=== PATIENT | female | born 1935 | race Two or more races ===

== ENCOUNTER 2016-07-14 15:22 | Inpatient (IN) | payer MEDICARE ==
[2016-07-14] VITALS (7 sets, daily range): BP systolic 76–133; BP diastolic 38–81
[~2016-07-14] VITALS: Ht 160 cm; Wt 81.6 kg
[2016-07-14] MEDS ORDERED: Glucagon 1mg Inj IV ONE (15:45)
[2016-07-14] MEDS ORDERED: Glucagon 1mg Inj ONE (15:45)
[2016-07-14 16:11] LABS: BASOPHILS % (AUTO) 0.9 % (0.0-2.0); EOSINOPHILS % (AUTO) 0.8 % (0.0-3.0); LYMPHOCYTES % (AUTO) 22.7 % (20.0-45.0); MEAN CORPUSCULAR HEMOGLOBIN 26.6 PG (27.0-31.0); MEAN CORPUSCULAR HGB CONC 30.3 G/DL (32.0-36.0); MEAN CORPUSCULAR VOLUME 88 FL (80-99); MEAN PLATELET VOLUME 6.5 FL (6.5-10.1); MONOCYTES % (AUTO) 5.1 % (1.0-10.0); NEUTROPHILS % (AUTO) 70.5 % (45.0-75.0); PLATELET COUNT 315 K/UL (150-450); RED BLOOD COUNT 3.07 M/UL (4.20-5.40); RED CELL DISTRIBUTION WIDTH 15.8 % (11.6-14.8); WHITE BLOOD COUNT 11.3 K/UL (4.8-10.8)
[2016-07-14 16:36] LABS: TROPONIN I < 0.30 ng/mL (<=0.30)
[2016-07-14 17:22] LABS: CHLORIDE 92 mEQ/L (98-107); POTASSIUM 5.1 mEQ/L (3.4-4.9); SODIUM 132 mEQ/L (135-145)
[2016-07-14 17:23] LABS: ANION GAP 20 (5-15); ASPARTATE AMINO TRANSFERASE 23 U/L (5-40); CALCIUM 8.7 mg/dL (8.6-10.2); CARBON DIOXIDE 20 mEQ/L (20-30); CREATININE 1.7 mg/dL (0.5-0.9)
[2016-07-14 17:24] LABS: ALANINE AMINOTRANSFERASE < 5 U/L (3-33); CKMB 1.9 ng/mL (< 3.8); TOTAL PROTEIN 6.6 g/dL (6.6-8.7)
[2016-07-14 17:25] LABS: ALBUMIN/GLOBULIN RATIO 0.7 (1.0-2.7); HEMOLYSIS 46
[2016-07-14] MEDS ORDERED: Sodium Polystyrene Sulfonate 15gm Powder ORAL ONE (18:00)
[2016-07-14] MEDS ORDERED: ASPIR 8181 MG ORAL (18:02)
[2016-07-14] MEDS ORDERED: COREG6.25 MG ORAL (18:02)
[2016-07-14] MEDS ORDERED: CEFUROXIME250 MG PO (18:02)
[2016-07-14] MEDS ORDERED: AMARYL4 MG ORAL (18:02)
[2016-07-14] MEDS ORDERED: ALLOPURINOL100 M1 ORAL (18:02)
[2016-07-14] MEDS ORDERED: CRESTOR20 MG ORAL (18:02)
[2016-07-14] MEDS ORDERED: AZILECT1 MG PO (18:02)
[2016-07-14] MEDS ORDERED: IPRATROPIU0.2 MG/1 M HHN (18:05)
[2016-07-14] MEDS ORDERED: SINEMET 25-1001 EAC1 ORAL (18:05)
[2016-07-14] MEDS ORDERED: JANUVIA50 MG ORAL (18:05)
[2016-07-14] MEDS ORDERED: HYZAAR 100-251 EACH ORAL (18:05)
[2016-07-14] MEDS ORDERED: SYNTHROID112 MCG ORAL (18:05)
--- NOTE | 2016-07-14 18:29 | Emergency Room Report ---
History of Present Illness General Chief Complaint: Chest Pain Source: EMS Present Illness HPI 81-year-old female presents ED for evaluation of chest pain. Patient states she 's been having chest pain for last 2 days. On and off. Sharp. intermittent. 12/20. Nonradiating. No other aggravating or relieving factors. Patient was picked up from doctor's office because blood pressure was low at her heart rate was low. Daughter is at bedside and states that patient was recently discharged from [facility] for a "cough". Daughter believes that patient's blood pressure medication Coreg was increased. PMD is Dr Templeton, audio/video technician is Dr Saenz. Patient was given IV fluids by EMS and BP slowly improved. Patient denies any chest pain shortness of breath. Denies dizziness or weakness. No aggravating relieving factors. Denies any other associated Allergies: Coded Allergies: No Known Allergies (Unverified , 07/14/16) Patient History Past Medical History: DM, CHF Past Surgical History: none Pertinent Family History: none Social History: Denies: alcohol use, drug use, smoking Now: No Immunizations: UTD Reviewed Nursing Documentation: PMH: Agreed, PSxH: Agreed Nursing Documentation-PMH Past Medical History: No History, Except For Hx Cardiac Problems: Yes - CHF Hx Diabetes: Yes Review of Systems All Other Systems: negative except mentioned in HPI Physical Exam Vital Signs Date Time Temp Pulse Resp B/P Pulse Ox O2 Delivery O2 Flow Rate FiO2 07/14/16 15:20 67 14 89/48 96 Room Air 07/14/16 15:27 97.2 Sp02 EP Interpretation: reviewed, normal General Appearance: no apparent distress, alert, GCS 15, non-toxic Head: normocephalic, atraumatic Eyes: bilateral eye PERRL, bilateral eye normal inspection ENT: hearing grossly normal, normal pharynx, no angioedema, normal voice Neck: full range of motion, supple/symm/no masses Respiratory: chest non-tender, lungs clear, normal breath sounds, speaking full sentences Cardiovascular #1: no edema, bradycardia Cardiovascular #2: 2+ carotid (R), 2+ carotid (L), 2+ radial (R), 2+ radial (L) , 2+ dorsalis pedis (R), 2+ dorsalis pedis (L) Gastrointestinal: normal bowel sounds, non tender, soft, non-distended, no guarding, no rebound Rectal: deferred Genitourinary: normal inspection, no CVA tenderness Musculoskeletal: back normal, gait/station normal, normal range of motion, non- tender Neurologic: alert, oriented x3, responsive, motor strength/tone normal, sensory intact, speech normal Psychiatric: judgement/insight normal, memory normal, mood/affect normal, no suicidal/homicidal ideation Reflexes: 3+ bicep (R), 3+ bicep (L), 3+ tricep (R), 3+ tricep (L), 3+ knee (R) , 3+ knee (L) Skin: normal color, no rash, warm/dry, well hydrated Lymphatic: no adenopathy Procedures Critical Care Time Critical Care Time i. I feel this is a highly complex case requiring extensive working including EKG/Rhythm strip, Xray/CT/US, Blood/urine lab work, repeat exams while in ED, and administration of strong opiates/narcotics for pain control, admission to hospital or close patient follow up. Total time: 30 min bedside evaluation and treatment excludes procedures (EKG). Reason for critical care: Hypotensive, bradycardic Possible complications: hypotension, hypertension, KS, shock, arrhythmias, metabolic acidosis, end organ damage, respiratory failure. Interventions: IV fluids, glucagon. Antibiotics, Kayexalate Course: Patient brought in for bradycardia and hypotensive. Recently Corag dose was increased. Given IV fluids, placed in Trendelenburg position with BP slowly improving. Given glucagon. Patient mentating well. Labs show some leukocytosis, creatinine 1.7, potassium 5.1. EKG no ischemic changes. Given antibiotics and Kayexalate Consultations: nursing staff, EMS, family Performed by: Dr Murphy Tolerated well condition = serious j. because of unstable vital signs this patient had a condition that could potentially threaten life or limb. I feel this is a critical patient who required my full attention while patient was considered critical. Total Critical Care Time excluding procedures was greater than 35 minutes Medical Decision Making Diagnostic Impression: Primary Impression: Adverse effect of beta-sara Additional Impressions: Bradycardia Hypotension Qualified Codes: I95.2 - Hypotension due to drugs ARF (acute renal failure) Qualified Codes: N17.9 - Acute kidney failure, unspecified Hyperkalemia, diminished renal excretion ER Course Hospital Course 81-year-old female presents to ED complaining of chest pain, hypotensive and bradycardic Differential diagnoses include: KS/unstable angina, dehydration, beta sara overdose Clinical course Patient placed on stretcher. on registered nurse cardiac telemetry. After initial history and physical I ordered labs, EKG, chest x-ray, IVFs, IV glucagon labs reviewed- some leiocytosis, hb/hct stable, Cr 1.7, K 5.1, BNP > 2000, trop negative Chest x-ray- no acute process EKG - no ischemic process, bradycardic With IV fluids and glucagon, BP improved. Heart rate remains in the 40s however patient is mentating well with good blood pressure Case discussed with Dr. Saenz and she agreed to accept the patient to his service for further care and support I. I feel this is a highly complex case requiring extensive working including EKG/Rhythm strip, Xray/CT/US, Blood/urine lab work, repeat exams while in ED, and administration of strong opiates/narcotics for pain control, admission to hospital or close patient follow up. Diagnosis - adverse affect a beta sara, bradycardia, hypertension, ARF, hyperkalemia admitted to [facility] in serious condition Labs Test 07/14/16 15:30 07/14/16 16:50 White Blood Count 11.3 K/UL (4.8-10.8) Red Blood Count 3.07 M/UL (4.20-5.40) Hemoglobin 8.2 G/DL (12.0-16.0) Hematocrit 26.9 % (37.0-47.0) Mean Corpuscular Volume 88 FL (80-99) Mean Corpuscular Hemoglobin 26.6 PG (27.0-31.0) Mean Corpuscular Hemoglobin Concent 30.3 G/DL (32.0-36.0) Red Cell Distribution Width 15.8 % (11.6-14.8) Platelet Count 315 K/UL (150-450) Mean Platelet Volume 6.5 FL (6.5-10.1) Neutrophils (%) (Auto) 70.5 % (45.0-75.0) Lymphocytes (%) (Auto) 22.7 % (20.0-45.0) Monocytes (%) (Auto) 5.1 % (1.0-10.0) Eosinophils (%) (Auto) 0.8 % (0.0-3.0) Basophils (%) (Auto) 0.9 % (0.0-2.0) Sodium Level 132 mEQ/L (135-145) Potassium Level 5.1 mEQ/L (3.4-4.9) Chloride Level 92 mEQ/L (98-107) Carbon Dioxide Level 20 mEQ/L (20-30) Anion Gap 20 (5-15) Blood Urea Nitrogen 67 mg/dL (7-23) Creatinine 1.7 mg/dL (0.5-0.9) Estimat Glomerular Filtration Rate mL/min (>60) Glucose Level 102 mg/dL (74-106) Lactic Acid Level 0.90 mmol/L (0.66-2.22) Calcium Level 8.7 mg/dL (8.6-10.2) Total Bilirubin 0.2 mg/dL (0.0-1.2) Aspartate Amino Transf (AST/SGOT) 23 U/L (5-40) Alanine Aminotransferase (ALT/SGPT) < 5 U/L (3-33) Alkaline Phosphatase 61 U/L (35-104) Total Creatine Kinase 40 U/L (26-140) Creatine Kinase MB 1.9 ng/mL (< 3.8) Creatine Kinase MB Relative Index 4.7 Pro-B-Type Natriuretic Peptide 2665 pg/mL (0-450) Total Protein 6.6 g/dL (6.6-8.7) Albumin 2.8 g/dL (3.5-5.2) Globulin 3.8 g/dL Albumin/Globulin Ratio 0.7 (1.0-2.7) Troponin I < 0.30 ng/mL (<=0.30) EKG Diagnostic Results Rate: bradycardiac Rhythm: NSR ST Segments: no acute changes ASA given to the pt in ED: No Rhythm Strip Diag. Results EP Interpretation: yes Rhythm: NSR, no PVC's, no ectopy Chest X-Ray Diagnostic Results EP Interpretation: No Findings: no consolidation, no effusion, no pneumothorax, no acute cardiopulmonary disease Number of Views: 1 Last Vital Signs Date Time Temp Pulse Resp B/P Pulse Ox O2 Delivery O2 Flow Rate FiO2 07/14/16 17:39 97.2 57 18 115/81 100 Room Air Status: improved Disposition: ADMITTED INPATIENT Condition: Serious Referrals: NON PHYSICIAN (PCP) BETSY MURPHY M.D. Jul 14, 2016 18:29
--- NOTE | 2016-07-14 20:31 | Cardiology Progress Note ---
Subjective Subjective [id number] Objective Last 24 Hour Vital Signs Date Time Temp Pulse Resp B/P Pulse Ox O2 Delivery O2 Flow Rate FiO2 07/14/16 19:01 97.2 48 18 133/59 100 Room Air 07/14/16 17:39 97.2 57 18 115/81 100 Room Air 07/14/16 17:00 97.2 43 15 102/38 98 Room Air 07/14/16 16:10 97.2 46 17 92/42 98 Room Air 07/14/16 16:00 97.2 45 15 76/58 96 Room Air 07/14/16 15:27 97.2 46 14 89/48 96 Room Air 07/14/16 15:27 67 14 Room Air 07/14/16 15:20 67 14 89/48 96 Room Air Laboratory Tests Test 07/14/16 15:30 07/14/16 16:50 White Blood Count 11.3 K/UL (4.8-10.8) H Red Blood Count 3.07 M/UL (4.20-5.40) L Hemoglobin 8.2 G/DL (12.0-16.0) L Hematocrit 26.9 % (37.0-47.0) L Mean Corpuscular Volume 88 FL (80-99) Mean Corpuscular Hemoglobin 26.6 PG (27.0-31.0) L Mean Corpuscular Hemoglobin Concent 30.3 G/DL (32.0-36.0) L Red Cell Distribution Width 15.8 % (11.6-14.8) H Platelet Count 315 K/UL (150-450) Mean Platelet Volume 6.5 FL (6.5-10.1) Neutrophils (%) (Auto) 70.5 % (45.0-75.0) Lymphocytes (%) (Auto) 22.7 % (20.0-45.0) Monocytes (%) (Auto) 5.1 % (1.0-10.0) Eosinophils (%) (Auto) 0.8 % (0.0-3.0) Basophils (%) (Auto) 0.9 % (0.0-2.0) Sodium Level 132 mEQ/L (135-145) L Potassium Level 5.1 mEQ/L (3.4-4.9) H Chloride Level 92 mEQ/L (98-107) L Carbon Dioxide Level 20 mEQ/L (20-30) Anion Gap 20 (5-15) H Blood Urea Nitrogen 67 mg/dL (7-23) H Creatinine 1.7 mg/dL (0.5-0.9) H Estimat Glomerular Filtration Rate mL/min (>60) Glucose Level 102 mg/dL (74-106) Lactic Acid Level 0.90 mmol/L (0.66-2.22) Calcium Level 8.7 mg/dL (8.6-10.2) Total Bilirubin 0.2 mg/dL (0.0-1.2) Aspartate Amino Transf (AST/SGOT) 23 U/L (5-40) Alanine Aminotransferase (ALT/SGPT) < 5 U/L (3-33) Alkaline Phosphatase 61 U/L (35-104) Total Creatine Kinase 40 U/L (26-140) Creatine Kinase MB 1.9 ng/mL (< 3.8) Creatine Kinase MB Relative Index 4.7 Pro-B-Type Natriuretic Peptide 2665 pg/mL (0-450) H Total Protein 6.6 g/dL (6.6-8.7) Albumin 2.8 g/dL (3.5-5.2) L Globulin 3.8 g/dL Albumin/Globulin Ratio 0.7 (1.0-2.7) L Troponin I < 0.30 ng/mL (<=0.30) CHARLY BRUSH Jul 14, 2016 20:31
[2016-07-14] MEDS ORDERED: Bisacodyl EC 5mg tab ORAL PRN (20:45)
[2016-07-15] VITALS: BP 116/64
--- NOTE | 2016-07-15 03:17 | History and Physical Report ---
DATE OF ADMISSION: 07/14/2016 "NOTE: INCOMPLETE DICTATION" Grace Saenz M.D. DR: JALYN JOB#: [id number] CC:
--- NOTE | 2016-07-15 03:37 | History and Physical Report ---
DATE OF ADMISSION: 07/14/2016 DATE OF EVALUATION: 07/15/2016 IDENTIFICATION: This is an 81-year-old female. REASON FOR ADMISSION: Low blood pressure and heart rate. HISTORY OF PRESENT ILLNESS: The patient was seen by orthopedist today and they found that her blood pressure was 74/40, heart rate was 60, and oxygen saturation was 94%. Ambulance was called. They brought her to the emergency department. At [facility], they gave her some fluids. Blood pressure went up. The heart rate now is 60. She feels better. She had some left-sided chest pain when she was in the emergency department. The patient was just discharged from [facility] three days ago where she was admitted for congestive heart failure and she was diuresed and treated for possible respiratory infection. She was discharged home with better condition, but probably was slightly over diuresed. PAST MEDICAL HISTORY: Significant also for diabetes, chronic atrial fibrillation, Parkinson disease, gout, hypothyroidism, hyperlipidemia, and bedridden status due to weakness of the right leg. HOME MEDICATIONS: Include allopurinol, aspirin, Sinemet, carvedilol, cefuroxime, glimepiride, Hyzaar, albuterol, Atrovent, levothyroxine, Azilect, Crestor, and Januvia. ALLERGIES: There is no reported allergies. HABITS: No history of drinking, smoking, or drug abuse. REVIEW OF SYSTEMS: The patient denies shortness of breath. Right now, no chest pain. But she has some chest pain earlier in the office of her Orthopedic. She does not have diarrhea. She does not have palpitations or syncope. She has weakness of the right leg which is chronic. Some skin discoloration. Blood sugar suboptimally controlled. PHYSICAL EXAMINATION: GENERAL: This is an elderly female, pleasant appears to be chronically ill, not in acute distress. VITAL SIGNS: Blood pressure at present time 130/60, but upon admission was 89/48, heart rate 46, now it is about 60 she is in atrial fibrillation, she is afebrile, and saturating on room air 100%. HEENT: PERRLA. EOMI. There is some blurriness of the speech, which is chronic. NECK: Neck veins are not distended. LUNGS: She has some rhonchi and wheezing at the bases of both lungs. HEART: Regular with accented A2. BREAST: No significant masses. ABDOMEN: Soft and distended. Positive bowel sounds. EXTREMITIES: Lower extremity right leg is slightly more edematous than the left. There is brown discoloration on her skin and there is immobility of the right knee joint. She also has limitation of the left shoulder joint . NEUROLOGIC: Beside the weakness of the right leg, she also has some mild tremor. LABORATORY AND DIAGNOSTIC DATA: Her EKG shows atrial fibrillation with decreased voltage. Chest x-ray is pending. Her labs, white count 11.3, hemoglobin 8.2, and platelets 315,000. Potassium 5.1, BUN 67, and creatinine 1.7. Troponin is normal. Albumin 2.8. IMPRESSION AND RECOMMENDATION: Hypertension, bradycardia mostly iatrogenic, and also anemia. The patient is going to be monitored. We are going to be small amounts of fluids to avoid fluid overload. We are going to monitor her potassium level and heart rate level. Going to replace her usual medications. Monitor her blood sugar and that was discussed in detail with the family. Grace Saenz M.D. DR: Malu JOB#: [id number] CC:
[2016-07-15 04:00] VITALS: BP 134/69
[2016-07-15 05:51] LABS: BASOPHILS % (AUTO) 0.5 % (0.0-2.0); MEAN CORPUSCULAR HEMOGLOBIN 27.4 PG (27.0-31.0); MEAN CORPUSCULAR HGB CONC 31.7 G/DL (32.0-36.0); MEAN CORPUSCULAR VOLUME 86 FL (80-99); MONOCYTES % (AUTO) 6.8 % (1.0-10.0); NEUTROPHILS % (AUTO) 78.7 % (45.0-75.0); PLATELET COUNT 326 K/UL (150-450); RED CELL DISTRIBUTION WIDTH 15.8 % (11.6-14.8); WHITE BLOOD COUNT 10.9 K/UL (4.8-10.8)
[2016-07-15] MEDS: sitaGLIPtin 50mg tab ORAL SCH ×2 (06:24→06:30)
[2016-07-15] MEDS: Glimepiride 1mg tab ORAL SCH ×2 (06:24→06:30)
[2016-07-15 06:42] LABS: ANION GAP 20 (5-15); CALCIUM 8.3 mg/dL (8.6-10.2); CARBON DIOXIDE 18 mEQ/L (20-30); CHLORIDE 101 mEQ/L (98-107); CREATININE 1.2 mg/dL (0.5-0.9); HEMOLYSIS 95; POTASSIUM 4.8 mEQ/L (3.4-4.9); SODIUM 139 mEQ/L (135-145)
[2016-07-15 08:00] VITALS: BP 129/59
[2016-07-15] MEDS: Sinemet 25/100 tab ORAL SCH ×4 (08:18→22:27)
[2016-07-15] MEDS: Aspirin EC 81mg tab ORAL SCH (08:18)
[2016-07-15] MEDS: Allopurinol 100mg Tab ORAL SCH (08:19)
[2016-07-15] MEDS: Acetaminophen 500mg (ES) tab ORAL PRN (08:21)
[2016-07-15 12:00] VITALS: BP 130/62
--- NOTE | 2016-07-15 13:00 | Diagnostic Imaging Report ---
Indication: Chest pain Technique: One view of the chest Comparison: none Findings: Patient is rotated to the right. Lungs and pleural spaces are grossly clear. There are degenerative changes of the right shoulder. Impression: Limited exam due to patient rotation. No gross acute process
[2016-07-15 16:03] VITALS: BP 120/62
--- NOTE | 2016-07-15 18:12 | Cardiology Progress Note ---
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 hold diuretics b-blcokers and ARB Subjective Subjective feels better BP is more stable she is concerned about dose of Sinemet Objective Last 24 Hour Vital Signs Date Time Temp Pulse Resp B/P Pulse Ox O2 Delivery O2 Flow Rate FiO2 07/15/16 16:03 97.6 74 21 120/62 97 Nasal Cannula 2.0 07/15/16 16:00 58 07/15/16 12:00 97.7 77 20 130/62 99 Nasal Cannula 2.5 07/15/16 09:20 97.2 07/15/16 08:00 84 07/15/16 08:00 97.3 85 19 129/59 97 Nasal Cannula 2.0 07/15/16 04:20 65 07/15/16 04:00 97.2 82 20 134/69 99 Mechanical Ventilator 07/15/16 00:00 61 07/15/16 00:00 97.7 62 20 116/64 99 Nasal Cannula 2.0 07/14/16 21:46 97.2 80 18 124/81 100 Room Air 07/14/16 20:42 97.2 80 18 124/81 100 Room Air 07/14/16 19:01 97.2 48 18 133/59 100 Room Air General Appearance: alert EENT: PERRL/EOMI Neck: no JVD Cardiovascular: normal rate, arrhythmia Respiratory/Chest: crackles/rales - at bases Abdomen: distended Extremities: other - limited ROM of right leg Intake and Output 07/14/16 07/15/16 19:00 07:00 # Voids 1 4 Laboratory Tests Test 07/15/16 05:00 White Blood Count 10.9 K/UL (4.8-10.8) H Red Blood Count 3.10 M/UL (4.20-5.40) L Hemoglobin 8.5 G/DL (12.0-16.0) L Hematocrit 26.8 % (37.0-47.0) L Mean Corpuscular Volume 86 FL (80-99) Mean Corpuscular Hemoglobin 27.4 PG (27.0-31.0) Mean Corpuscular Hemoglobin Concent 31.7 G/DL (32.0-36.0) L Red Cell Distribution Width 15.8 % (11.6-14.8) H Platelet Count 326 K/UL (150-450) Mean Platelet Volume 7.0 FL (6.5-10.1) Neutrophils (%) (Auto) 78.7 % (45.0-75.0) H Lymphocytes (%) (Auto) 13.0 % (20.0-45.0) L Monocytes (%) (Auto) 6.8 % (1.0-10.0) Eosinophils (%) (Auto) 1.0 % (0.0-3.0) Basophils (%) (Auto) 0.5 % (0.0-2.0) Sodium Level 139 mEQ/L (135-145) Potassium Level 4.8 mEQ/L (3.4-4.9) Chloride Level 101 mEQ/L (98-107) Carbon Dioxide Level 18 mEQ/L (20-30) L Anion Gap 20 (5-15) H Blood Urea Nitrogen 56 mg/dL (7-23) H Creatinine 1.2 mg/dL (0.5-0.9) H Estimat Glomerular Filtration Rate mL/min (>60) Glucose Level 50 mg/dL (74-106) L Calcium Level 8.3 mg/dL (8.6-10.2) CHARLY VICENTE Jul 15, 2016 18:12
[2016-07-15 20:00] VITALS: BP 120/55
[2016-07-16 00:13] VITALS: BP 118/57
[2016-07-16 04:00] VITALS: BP 108/57
[2016-07-16] MEDS: Acetaminophen 500mg (ES) tab ORAL PRN (05:33)
[2016-07-16] MEDS: sitaGLIPtin 50mg tab ORAL SCH (06:42)
[2016-07-16] MEDS: Glimepiride 1mg tab ORAL SCH (06:42)
[2016-07-16 08:00] VITALS: BP 126/58
[2016-07-16] MEDS: Aspirin EC 81mg tab ORAL SCH (08:36)
[2016-07-16] MEDS: Sinemet 25/100 tab ORAL SCH ×2 (08:36→12:36)
[2016-07-16] MEDS: Allopurinol 100mg Tab ORAL SCH (08:36)
[2016-07-16 12:00] VITALS: BP 129/61
--- NOTE | 2016-07-17 16:12 | Cardiology Report ---
APPROVED REPORT EKG Measurement Heart [id number] P42 [id number] Atrial flutter Moderate voltage criteria for LVH, may be normal variant Abnormal ECG
--- NOTE | 2016-07-19 09:15 | Discharge Summary ---
Discharge Summary Hospital Course Date of Admission Jul 14, 2016 at 16:11 Date of Discharge Jul 16, 2016 at 15:46 Admitting Diagnosis ACS HPI Rowan Lee is a 81 year old female who was admitted on Jul 14, 2016 at 16:11 for Acute Coronary Syndrome Hospital Course dc summary dictated #[id number] Discharge Medications Continued Medications: Allopurinol* (Allopurinol*) 100 Mg Tablet 100 MG ORAL DAILY, TAB Aspirin* (Aspir 81*) 81 Mg Tablet.dr 81 MG ORAL DAILY, TAB Carbidopa/Levodopa 25-100 Mg* (Sinemet 25-100 Mg Tablet*) 1 Each Tablet 1 TAB ORAL THREE TIMES A DAY, TAB Glimepiride* (Amaryl*) 4 Mg Tablet 4 MG ORAL BEFORE BREAKFAST, TAB Levothyroxine Sodium* (Synthroid*) 112 Mcg Tablet 112 MCG ORAL DAILY, TAB Take in the morning on an empty stomach, at least 30 minutes before food. Rasagiline Mesylate (Azilect) 1 Mg Tablet 1 MG PO, TAB Rosuvastatin Calcium* (Crestor*) 20 Mg Tablet 20 MG ORAL DAILY, TAB Sitagliptin (Januvia) 50 Mg Tablet 50 MG ORAL DAILY, TAB Discharge Condition Upon Discharge: improving, stable Discharge Disposition Patient was discharged to Home () Discharge Diagnoses: Eusebio (Jacquelynnat)Tyra NP Jul 19, 2016 09:15
--- NOTE | 2016-07-19 22:19 | Discharge Summary 2 SIG ---
DATE OF ADMISSION: 07/14/2016 DATE OF DISCHARGE: 07/16/2016 REASON FOR ADMISSION: 81-year-old female was brought by ambulance from orthopedic office, where it was found that her blood pressure was 74/40 and heart rate was in 40s. Oxygen saturation on room air was stable at 94%. The patient was brought for evaluation. In the hospital, blood pressure 76/58 and heart rate was in 40s. Basic lab work revealed renal insufficiency with creatinine of 1.7, mild leukocytosis 11.3, potassium 5.1, and proBNP of more than 2000. Troponin was negative. Chest x-ray was negative for any acute cardiopulmonary disease. Lactate level was within normal limits. EKG revealed sinus bradycardia. No ectopy. No other ischemic changes. In the emergency department, the patient was given IV fluids. Blood pressure improved but heart rate remained in 40s. The patient was admitted for further management. The patient had recently increased dose of beta-sara. The patient was discharged from [facility] three days ago prior to admission to [facility] , where she was admitted for congestive heart failure. In [facility], she was diuresed and treated for possible respiratory infection. She discharged home in better condition, however, probably slightly over diuresed , in addition dose of beta-sara was recently increased as well. Patient admitted to monitored bed for further management. . ADMITTING DIAGNOSES: 1. Adverse effect of beta-sara. 2. Bradycardia. 3. Hypotension. 4. Mild hyperkalemia. 5. Anemia. HOSPITAL COURSE: The patient was admitted to [facility]. Gentle IV fluids were provided with care to avoid fluid overload. Cardiopulmonary status was closely monitored. Supplemental oxygen and pulmonary toilet were provided as needed. Blood pressure medications were on hold. Hyperkalemia was treated. Blood sugar was managed with sliding scale of insulin, stable. Hypotension improved. Bradycardia resolved. Per Cardiology, hold diuretic, beta-blockers and ARB upon discharge. The patient was noted to have anemia. She is on aspirin. Anemia workup as outpatient. The patient was stable for discharge. DISCHARGE DIAGNOSES: 1. Adverse effect of beta-sara. 2. Bradycardia, resolved. 3. Hypotension, resolved 4. Hyperkalemia, resolved. 5. Anemia. 6. Diabetes mellitus. 7. History of congestive heart failure. DISCHARGE MEDICATIONS: See medication reconciliation list. Hold diuretic, beat-sara and ARB. DISCHARGE INSTRUCTIONS: Follow up with the primary medical doctor and rn orthopaedic for further optimization of medication regimen. Grace Saenz M.D. I have been assigned to dictate discharge summary on this account and I was not involved in the patient's management. Tyra ChambersEastern Niagara Hospital, Newfane DivisionPedro Vitale DR: MONICA JOB#: [id number] CC: DELMY
--- NOTE | 2016-07-21 16:18 | Diagnostic Imaging Report ---
APPROVED REPORT CPT Code: 21769 Present Symptoms Comments: Pain BILATERAL: Imaging reveals a patent deep venous system bilaterally. There is no evidence of thrombus within the femoral, popliteal or tibial segments. The greater saphenous veins are also within normal limits. Doppler indicates normal spontaneous flow within these segments.
--- NOTE | 2016-07-21 16:57 | Cardiology Progress Note ---
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
--- NOTE | 2016-07-22 01:18 | Discharge Summary ---
DATE OF ADMISSION: 07/14/2016 DATE OF DISCHARGE: 07/16/2016 DIAGNOSES: 1. Hypotension, possibly iatrogenic. 2. Permanent atrial fibrillation. 3. Acute renal injury. 4. Anemia. 5. Diabetes mellitus. 6. Parkinson's disease. 7. Congestive heart failure, chronic diastolic without exacerbation. CONDITION ON DISCHARGE: Guarded. DESTINATION: Home. FOLLOWUP: Follow up in two days. DISCHARGE MEDICATIONS: Please see discharge medication list. DIET: Cardiac and diabetic diet. ACTIVITY: Ambulate with assistance with caregiver. BRIEF HOSPITAL SUMMARY: This is an 81-year-old female who came in being slightly hypotensive. She had left-sided chest pain. The patient recently was admitted to [facility] for heart failure. She is in permanent atrial fibrillation. She is on aspirin. The patient had elevated creatinine and potassium, when she came in. She appeared to have acute kidney injury and prerenal azotemia, most likely due to diuretic effect. The patient's respiratory status was normal. She was monitored and her heart rate was stable. She was in a permanent atrial fibrillation. Her blood pressure stabilized. She was off beta-sara and ARBs at that time and no diuretics. The patient has been instructed at home to limit salt intake and fluid intake, to take carvedilol, and going to titrate those up and down depending on her home situation and she is going to take furosemide 20 mg twice a week. Anticoagulation issue was addressed extensively with the daughter and we recommended to repeat attempt to treat her with Eliquis. In the past, she was started on Eliquis, but she said that she developed diarrhea, but it might be not from Eliquis but from another medication. Anemia, hemoglobin was uncertain etiology, there was no evidence of acute GI bleed, but recommendations were to follow with the primary doctor, Dr. Templeton, and to address anemia issues as an outpatient. Grace Saenz M.D. DR: Siva JOB#: [id number] CC: DELMY
== END 2016-07-16 15:46 | disposition home or self-care (01) | DRG 310 ==
LOC: EDBD 15:22 → EDBEDREQSVC 15:43 → EMR 15:58 → 2W 16:11 → EDBEDREQ 17:12 → 2W 23:11
DX: R00.1 Bradycardia, unspecified (principal); G20 Parkinson's disease; I50.9 Heart failure, unspecified; I95.9 Hypotension, unspecified; E11.9 Type 2 diabetes mellitus without complications; D64.9 Anemia, unspecified; E03.9 Hypothyroidism, unspecified; E78.5 Hyperlipidemia, unspecified; T44.7X5A Adverse effect of beta-adrenoreceptor antagonists, initial encounter; I48.2 Chronic atrial fibrillation; M10.9 Gout, unspecified; Z22.322 Carrier or suspected carrier of Methicillin resistant Staphylococcus aureus
CPT/HCPCS: 36415; 71010; 80048; 80053; 82550; 82553; 82962; 83605; 83880; 84484; 85025; 87040; 87081; 93005; 93970